=== PATIENT | male | born 1995 | race Caucasian/White ===

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

== ENCOUNTER 2017-02-17 12:16 | Emergency (ER) | payer SELFPAY ==
[~2017-02-17] VITALS: Ht 187.9 cm; Wt 90.7 kg
[~2017-02-17 12:16] MED LIST changes: +CYCLOBENZAPRINE5 M3 PO; +Motrin,Rufen800 MG PO; +ULTRAM50 MG PO
[2017-02-17 12:26] VITALS: BP 146/65
[2017-02-17] MEDS ORDERED: PREDNISONE20 M1 PO (13:45)
[2017-02-17] MEDS ORDERED: AMOXICILLIN500 M2 PO (13:45)
== END 2017-02-17 14:48 | disposition home or self-care (01) ==
LOC: ED 12:16
DX: J02.9 Acute pharyngitis, unspecified (principal); F17.200 Nicotine dependence, unspecified, uncomplicated; Z88.8 Allergy status to other drugs, medicaments and biological substances

== ENCOUNTER 2018-07-29 13:47 | Emergency (ER) | payer SELFPAY ==
[~2018-07-29] VITALS: Ht 187.9 cm; Wt 88.5 kg
[2018-07-29 13:49] VITALS: BP 149/83
[2018-07-29] MEDS ORDERED: PREDNISONE10 MG PO (13:55)
[2018-07-29] MEDS ORDERED: FLONASE ALLERG9.9 ML NAS (13:55)
[2018-07-29] MEDS ORDERED: CLARITIN10 MG PO (13:55)
== END 2018-07-29 15:41 | disposition home or self-care (01) ==
LOC: ED 13:47
DX: J20.9 Acute bronchitis, unspecified (principal); R03.0 Elevated blood-pressure reading, without diagnosis of hypertension; Z88.8 Allergy status to other drugs, medicaments and biological substances; Z79.2 Long term (current) use of antibiotics; Z79.899 Other long term (current) drug therapy

== ENCOUNTER 2019-05-17 16:42 | Emergency (ER) | payer BC ==
[~2019-05-17] VITALS: Ht 187.9 cm; Wt 90.7 kg
[~2019-05-17 16:42] MED LIST changes: +CLARITIN10 MG PO
[2019-05-17 16:56] LABS: BASO # 0.1 10*3/uL (0.0-0.1); BASO % 1.4 % (0.0-1.0); EOS # 0.4 10*3/uL (0.0-0.4); EOS % 4.5 % (1.0-4.0); HEMATOCRIT 45.4 % (42.0-52.0); HEMOGLOBIN 16.3 g/dl (14.0-18.0); LYMPH # 3.5 10*3/uL (1.3-4.4); LYMPH % 35.6 % (27.0-41.0); MEAN CELL VOLUME 79.1 fl (80.0-94.0); MEAN CORPUSCULAR HGB 28.4 pg (27.0-31.0); MEAN CORPUSCULAR HGB CONC 35.9 g/dl (33.0-37.0); MEAN PLATELET VOLUME 10.8 fl (9.6-12.3); MONO # 0.8 10*3/uL (0.1-1.0); NEUT # 4.9 10*3/uL (2.3-7.9); NEUT % 50.1 % (47.0-73.0); PLATELET COUNT AUTOMATED 275 10*3/uL (130-400); RED BLOOD COUNT 5.74 10*6/uL (4.50-5.90); RED CELL DISTRI WIDTH 11.9 % (0-14.5); WHITE BLOOD COUNT 9.8 10*3/uL (4.8-10.8)
[2019-05-17 17:07] LABS: ACT PARTIAL THROMBO TIME 24.5 SECONDS (20.0-32.1); INTERNATIONAL NORM RATIO 0.9 (2.0-3.5)
[2019-05-17 17:12] LABS: ALBUMIN 4.6 gm/dl (3.1-4.5); ALKALINE PHOSPHATASE 87 U/L (45-117); BUN 17 mg/dl (7-24); CHLORIDE 109 mmol/L (98-107); CREATININE 1.44 mg/dL (0.70-1.30); POTASSIUM 3.6 mmol/L (3.5-5.1); SGOT/AST 18 IU/L (3-35); SGPT/ALT 23 U/L (12-78); SODIUM 141 mmol/L (136-145); TOTAL PROTEIN 7.9 gm/dL (6.4-8.2)
[2019-05-17 17:13] LABS: TROPONIN I < 0.015 ng/ml (<0.045)
[2019-05-17] MEDS ORDERED: VISTARIL25 MG PO (18:37)
[2019-05-17 18:40] VITALS: BP 125/61
== END 2019-05-17 18:25 | disposition home or self-care (01) ==
LOC: ED 16:42
PROVIDERS: Emergency Medicine
DX: F41.9 Anxiety disorder, unspecified (principal); R20.2 Paresthesia of skin; R20.0 Anesthesia of skin; F17.200 Nicotine dependence, unspecified, uncomplicated; Z88.8 Allergy status to other drugs, medicaments and biological substances; Z79.899 Other long term (current) drug therapy; Z79.2 Long term (current) use of antibiotics